=== PATIENT | female | born 1965 | race Two or more races ===

== ENCOUNTER 2020-05-22 14:51 | Emergency (ER) | payer MEDICAID ==
[~2020-05-22] VITALS: Ht 162.6 cm; Wt 63.5 kg
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
[2020-05-22] MEDS ORDERED: HYDROCODONE/APAP 5/325MG TABLET ONE (16:35)
--- NOTE | 2020-05-22 16:35 | NUR ---
pt requested pain medication before discharge. MD made aware with new order of norco. Patient discharged to home in stable condition. Written and verbal after care instructions given. Patient verbalizes understanding of instruction.
[2020-05-22 16:45] VITALS: BP 117/68
[2020-05-22] MEDS ORDERED: HYDROCODONE/APAP 5/325MG TABLET PO ONE (17:00)
== END 2020-05-22 16:46 | disposition home or self-care (01) ==
LOC: ER 15:00
DX: S33.5XXA Sprain of ligaments of lumbar spine, initial encounter (principal); S40.012A Contusion of left shoulder, initial encounter; V49.59XA Passenger injured in collision with other motor vehicles in traffic accident, initial encounter; Y93.89 Activity, other specified; Y92.488 Other paved roadways as the place of occurrence of the external cause; Y99.8 Other external cause status
CPT/HCPCS: 72100-TC; 73030-TC